=== PATIENT | male | born 1950 | race African-American/Black ===

== ENCOUNTER 2020-10-18 13:27 | Emergency (ER) | payer OTHER ==
[2020-10-18 14:05] LABS: Actual Bicarbonate (HCO3v) 25 mEq/L (22-28); Analyzer IN Cardio ER; Base Excess 0.3 mEq/L (-2.0 to +3.0); Calcium, Ionized (venous) 1.07 mmol/L (1.16-1.32); Chloride (VBG) 102 mmol/L (98-106); Hemoglobin (Hb) 14.7 g/dL (12.6-17.4); Potassium (VBG) 3.92 mmol/L (3.70-5.30); Sodium 137.4 mmol/L (133-146); pH (venous) 7.42 (7.32-7.43)
[2020-10-18 14:18] LABS: #Lymphocytes 0.6 thou/uL (1.20-3.40); #Monocytes 0.5 thou/uL (0.11-0.59); #Neutrophils 4.4 thou/uL (1.40-6.50); %Basophils 0.1 % (0.0-1.0); %Eosinophils 0.1 % (0.0-10.0); %Lymphocytes 11.3 % (21.0-51.0); %Monocytes 8.1 % (0.0-10.0); %Neutrophils 80.4 % (42.0-75.0); Hemoglobin 13.7 g/dL (14.0-18.0); Mean Corpuscular HGB CONC 34.9 g/dL (32.0-36.0); Mean Corpuscular Hemoglobin 34.5 pg (27.0-31.0); Mean Corpuscular Volume 98.8 fL (78.0-98.0); Mean Platelet Volume 7.3 fL (7.4-10.4); Platelet Count 233 thou/uL (130-400); RBC Distribution Width 12.4 % (11.5-14.5); Red Blood Cell (RBC) Count 3.97 mill/uL (4.70-6.10); White Blood Cell (WBC) Count 5.5 thou/uL (4.8-10.8)
[2020-10-18 14:42] LABS: ALT (SGPT) 21 U/L (8-55); AST (SGOT) 45 U/L (5-34); Albumin 3.5 g/dL (3.4-4.8); Alkaline Phosphatase 65 U/L (40-110); Anion Gap 15 mmol/L (10-20); BUN (Urea Nitrogen) 28 mg/dL (8.4-25.7); Bilirubin, Total 0.4 mg/dL (0.2-1.2); Calc. Creatinine Clearance 0 mL/min (70-130); Calcium 9.1 mg/dL (7.8-10.44); Carbon Dioxide 25 mmol/L (23-31); Chloride 101 mmol/L (98-107); Globulin 5.2 g/dL (2.4-3.5); Glucose 138 mg/dL (83-110); Potassium 3.9 mmol/L (3.5-5.1); Protein, Total 8.7 g/dL (5.8-8.1); Sodium 137 mmol/L (136-145)
[2020-10-18] MEDS ORDERED: Acetaminophen 325 MG TAB ONE (14:59)
[2020-10-18] MEDS ORDERED: cefTRIAXone\\ROCEPHIN 2 GM VIAL ONE (14:59)
[2020-10-18] MEDS ORDERED: Azithromycin 500 MG VIAL ONE (14:59)
[2020-10-18] MEDS ORDERED: Aspirin Chewable 81 MG TAB ONE (14:59)
[2020-10-18 16:07] LABS: SARS-CoV-2 NAA Rapid Test DETECTED (NotDetected)
[2020-10-18 17:21] LABS: Lactic Acid 1.5 mmol/L (0.5-2.2)
[2020-10-18] MEDS ORDERED: Dexamethasone 10 MG/ML VIAL ONE (20:27)
== END 2020-10-18 22:00 | disposition short-term general hospital (02) ==
LOC: ERS 13:27 → EDBD 13:27 → ERS 22:00
DX: A41.89 Other specified sepsis (principal); U07.1 COVID-19; J12.82 Pneumonia due to coronavirus disease 2019; R09.02 Hypoxemia; R00.0 Tachycardia, unspecified; I10 Essential (primary) hypertension; F17.210 Nicotine dependence, cigarettes, uncomplicated
CPT/HCPCS: 0240U; 36415; 71045; 80053; 82805; 83605; 84484; 85025; 93005; 96365; 96367; 96375; J0456; J0696; J1100

== ENCOUNTER 2021-10-18 22:05 | Inpatient (IN) | payer OTHER ==
[2021-10-18 22:44] LABS: Mean Corpuscular Hemoglobin 32.6 pg (27.0-31.0); Mean Corpuscular Volume 98.9 fL (78.0-98.0); Mean Platelet Volume 7.1 fL (7.4-10.4); Platelet Count 215 thou/uL (130-400); RBC Distribution Width 13.3 % (11.5-14.5); White Blood Cell (WBC) Count 4.7 thou/uL (4.8-10.8)
[2021-10-18 23:00] LABS: Band 1 % (5-11); Hypochromia SLIGHT = 6-15 cells (100X) (0-5/hpf); Lymphocytes 51 % (21-51); MDiff Complete? YES; Monocytes 4 % (0-10); Neutrophil 44 % (42-75); Platelet Morphology Comment Appears Adequate
[2021-10-18 23:06] LABS: ALT (SGPT) 15 U/L (8-55); AST (SGOT) 26 U/L (5-34); Albumin 3.6 g/dL (3.4-4.8); Alkaline Phosphatase 82 U/L (40-110); Anion Gap 16 mmol/L (10-20); BUN (Urea Nitrogen) 10 mg/dL (8.4-25.7); Bilirubin, Total 0.5 mg/dL (0.2-1.2); Calc. Creatinine Clearance 0 mL/min (70-130); Calcium 8.6 mg/dL (7.8-10.44); Carbon Dioxide 19 mmol/L (23-31); Chloride 104 mmol/L (98-107); Estimated GFR 87; Globulin 4.2 g/dL (2.4-3.5); Glucose 88 mg/dL (83-110); Potassium 3.6 mmol/L (3.5-5.1); Protein, Total 7.8 g/dL (5.8-8.1); Sodium 135 mmol/L (136-145)
[2021-10-18 23:08] LABS: Acetaminophen Less than 10.0 mcg/mL (10.0-30.0); Alcohol 207 mg/dL (Less than 10); CK (CPK) 285 U/L (30-200); Salicylate Less than 8.0 mg/dL (15.0-30.0)
[2021-10-18 23:35] LABS: Bacteria/HPF None Seen HPF (None Seen); Bilirubin Negative (Negative); Blood, Urine Trace (Negative); Clarity Clear (Clear); Glucose, Urine (Dipstick) Normal (Negative); Ketone, Urine Negative (Negative); Leukocyte 75 Leu/uL (Negative); Nitrite Negative (Negative); Protein, Urine (Dipstick) Negative (Neg-Trace); RBC/HPF 0-3 HPF (0-3); Specific Gravity, Urine 1.007 (1.002-1.036); Squamous Epithelial 0-3 HPF (0-3); Urobilinogen Normal mg/dL (Less than 2)
[2021-10-18 23:43] LABS: Amphetamine Not Detected (NotDetected); Barbiturates Screen Not Detected (NotDetected); Benzodiazepine Screen Not Detected (NotDetected); Cocaine Metabolite Screen Not Detected (NotDetected); Methadone Not Detected (NotDetected); Methamphetamine Not Detected (NotDetected); Opiate Screen Not Detected (NotDetected); Oxycodone Screen Not Detected (NotDetected); Phencyclidine (PCP) Not Detected (NotDetected); THC/Cannabinoid Screen Not Detected (NotDetected); Tricyclic Screen Not Detected (NotDetected)
[2021-10-19] MEDS ORDERED: Cephalexin 250 MG CAP ONE (00:44)
[2021-10-19 01:29] LABS: Lactic Acid 4.2 mmol/L (0.5-2.2)
[2021-10-19] MEDS ORDERED: cefTRIAXone\\ROCEPHIN 1 GM VIAL ONE (02:17)
[2021-10-19] MEDS ORDERED: Lorazepam (BATCHED) 2 MG/ML SYR ONE (07:24)
[2021-10-19] MEDS ORDERED: Lorazepam 1 MG TAB ONE (07:33)
[2021-10-19 09:36] LABS: Lactic Acid 5.3 mmol/L (0.5-2.2)
[2021-10-19] MEDS ORDERED: Ondansetron PF 4 MG/2 ML Vial IVP PRN (09:51)
[2021-10-19] MEDS ORDERED: Acetaminophen 325 MG TAB PO PRN (09:51)
[2021-10-19 11:13] VITALS: BMI 19.2
[2021-10-19] MEDS: Multivitamins, Adult 10 ML, Folic Acid 1 MG, Thiamine HCl 100 MG in Dextrose 5 %-0.45 %... IV SCH (13:31)
[2021-10-19 14:19] LABS: SARS-CoV-2 NAA Rapid Test Not Detected (NotDetected)
[2021-10-19] MEDS: Nicotine 14 MG PATCH TD SCH (17:30)
[2021-10-19] MEDS: Mometasone/Formoterol 200/5 60 PUFF INH SCH (18:43)
[2021-10-19] MEDS ORDERED: Morphine 2 MG/ML VIAL SLOW IVP PRN (19:52)
[2021-10-19] MEDS: Sodium Chloride 0.9% 1,000 ML IV SCH (20:31)
[2021-10-20 06:44] LABS: Calcium 8.5 mg/dL (7.8-10.44); Chloride 99 mmol/L (98-107); Potassium 5.4 mmol/L (3.5-5.1); Sodium 129 mmol/L (136-145)
[2021-10-20 06:45] LABS: Glucose 89 mg/dL (83-110)
[2021-10-20 06:46] LABS: Carbon Dioxide 13 mmol/L (23-31)
[2021-10-20 06:48] LABS: Calc. Creatinine Clearance 65 mL/min (70-130); Estimated GFR 92
[2021-10-20 06:49] LABS: BUN (Urea Nitrogen) 10 mg/dL (8.4-25.7)
[2021-10-20 07:43] LABS: #Lymphocytes 1.1 thou/uL (1.20-3.40); #Monocytes 0.7 thou/uL (0.11-0.59); #Neutrophils 8.2 thou/uL (1.40-6.50); %Basophils 0.5 % (0.0-1.0); %Eosinophils 0.2 % (0.0-10.0); %Neutrophils 81.3 % (42.0-75.0); Hemoglobin 16.2 g/dL (14.0-18.0); Mean Corpuscular Hemoglobin 32.3 pg (27.0-31.0); Mean Platelet Volume 7.3 fL (7.4-10.4); Platelet Count 179 thou/uL (130-400); RBC Distribution Width 13.4 % (11.5-14.5); White Blood Cell (WBC) Count 10.1 thou/uL (4.8-10.8)
[2021-10-20] MEDS: Mometasone/Formoterol 200/5 60 PUFF INH SCH ×2 (07:53→19:21)
[2021-10-20] MEDS ORDERED: Enoxaparin Sodium 40 MG/0.4 ML SYRINGE SC SCH (09:00)
[2021-10-20 10:19] LABS: Potassium 3.3 mmol/L (3.5-5.1)
[2021-10-20] MEDS: CEFAZOLIN 2 GM in Sodium Chloride 0.9% 100 ML IVPB SCH ×3 (10:21→18:28)
[2021-10-20] MEDS: Metoprolol Tartrate 25 MG TAB PO SCH ×2 (10:21→20:17)
[2021-10-20] MEDS: Sodium Chloride 0.9% 1,000 ML IV SCH ×2 (10:22→23:51)
[2021-10-20] MEDS ORDERED: Phenylephrine 10 MG/ML VIAL ONE (11:00)
[2021-10-20] MEDS ORDERED: Dexamethasone 20 MG/5 ML VIAL ONE (11:00)
[2021-10-20] MEDS ORDERED: Neostigmine Methylsulfate 3 MG/3 ML SYRINGE ONE (11:00)
[2021-10-20] MEDS ORDERED: Lidocaine 1% MPF 2 ML VIAL ONE (11:00)
[2021-10-20] MEDS ORDERED: PROPOFOL 200 MG/20 ML VIAL ONE (11:00)
[2021-10-20] MEDS ORDERED: Rocuronium Bromide 10 MG/ML (10ML VIAL) ONE (11:00)
[2021-10-20] MEDS ORDERED: Glycopyrrolate 0.2 MG/ML 5 ML SYRINGE ONE (11:00)
[2021-10-20] MEDS ORDERED: Ondansetron PF 4 MG/2 ML Vial ONE (11:00)
[2021-10-20] MEDS ORDERED: EPINEPHrine 1 MG/10 ML Abboject SYRINGE ONE (11:00)
[2021-10-20] MEDS: Nicotine 14 MG PATCH TD SCH (12:32)
[2021-10-20] MEDS ORDERED: fentaNYL Citrate/PF 100 MCG/2 ML SYRINGE ONE (14:16)
[2021-10-20] MEDS ORDERED: Ketamine 50 MG/ML (10ML VIAL) ONE (14:16)
[2021-10-20] MEDS ORDERED: Midazolam HCl 2 mg/2 ml Vial ONE (14:41)
[2021-10-20] MEDS: Multivitamins, Adult 10 ML, Folic Acid 1 MG, Thiamine HCl 100 MG in Dextrose 5 %-0.45 %... IV SCH (14:53)
[2021-10-20] MEDS ORDERED: hydrALAZINE 20 MG/ML VIAL ONE (16:39)
[2021-10-20] MEDS ORDERED: Promethazine HCl 25 MG/ML VIAL IVPB PRN (16:43)
[2021-10-20] MEDS ORDERED: Ondansetron HCl/PF 4 MG/2 ML Vial IVP PRN (16:43)
[2021-10-20] MEDS ORDERED: Morphine Sulfate 2 MG/ML SYRINGE SLOW IVP PRN (16:43)
[2021-10-20] MEDS ORDERED: Promethazine HCl 25 MG/ML VIAL IM PRN (16:43)
[2021-10-20] MEDS ORDERED: hydrALAZINE 20 MG/ML VIAL SLOW IVP PRN (16:44)
[2021-10-20] MEDS ORDERED: Fentanyl 100 MCG/2 ML VIAL ONE (16:52)
[2021-10-21] MEDS: CEFAZOLIN 2 GM in Sodium Chloride 0.9% 100 ML IVPB SCH ×4 (00:01→17:41)
[2021-10-21] MEDS: HYDROcodone/Acetaminophen 5/325 mg Tablet PO PRN ×2 (00:38→20:49)
[2021-10-21] MEDS: Mometasone/Formoterol 200/5 60 PUFF INH SCH ×2 (06:55→18:22)
[2021-10-21 08:40] LABS: #Lymphocytes 0.9 thou/uL (1.20-3.40); #Monocytes 0.8 thou/uL (0.11-0.59); #Neutrophils 7.2 thou/uL (1.40-6.50); %Basophils 0.3 % (0.0-1.0); %Eosinophils 0.1 % (0.0-10.0); %Lymphocytes 10.4 % (21.0-51.0); %Neutrophils 80.1 % (42.0-75.0); Hemoglobin 14.3 g/dL (14.0-18.0); Mean Corpuscular HGB CONC 32.4 g/dL (32.0-36.0); Mean Corpuscular Hemoglobin 31.5 pg (27.0-31.0); Mean Corpuscular Volume 97.3 fL (78.0-98.0); Mean Platelet Volume 8.3 fL (7.4-10.4); Platelet Count 173 thou/uL (130-400); RBC Distribution Width 13.6 % (11.5-14.5); Red Blood Cell (RBC) Count 4.53 mill/uL (4.70-6.10)
[2021-10-21] MEDS: Metoprolol Tartrate 25 MG TAB PO SCH ×2 (09:00→20:49)
[2021-10-21 09:04] LABS: Anion Gap 17 mmol/L (10-20); BUN (Urea Nitrogen) 14 mg/dL (8.4-25.7); Calc. Creatinine Clearance 62 mL/min (70-130); Calcium 8.6 mg/dL (7.8-10.44); Carbon Dioxide 21 mmol/L (23-31); Chloride 101 mmol/L (98-107); Estimated GFR 91; Glucose 92 mg/dL (83-110); Sodium 135 mmol/L (136-145)
[2021-10-21] MEDS ORDERED: Tamsulosin HCl 0.4 MG CAP PO SCH (11:45)
[2021-10-21] MEDS: Multivitamins, Adult 10 ML, Folic Acid 1 MG, Thiamine HCl 100 MG in Dextrose 5 %-0.45 %... IV SCH (13:15)
[2021-10-21] MEDS: Nicotine 14 MG PATCH TD SCH (13:15)
[2021-10-21] MEDS: Sodium Chloride 0.9% 1,000 ML IV SCH (15:59)
[2021-10-22] MEDS: Sodium Chloride 0.9% 1,000 ML IV SCH ×2 (01:19→18:25)
[2021-10-22] MEDS: CEFAZOLIN 2 GM in Sodium Chloride 0.9% 100 ML IVPB SCH ×3 (01:19→16:13)
[2021-10-22 01:47] LABS: Lactic Acid 1.2 mmol/L (0.5-2.2)
[2021-10-22 05:27] LABS: #Monocytes 0.8 thou/uL (0.11-0.59); #Neutrophils 5.4 thou/uL (1.40-6.50); %Basophils 0.1 % (0.0-1.0); %Eosinophils 0.1 % (0.0-10.0); %Lymphocytes 13.8 % (21.0-51.0); %Monocytes 11.4 % (0.0-10.0); %Neutrophils 74.6 % (42.0-75.0); Hemoglobin 11.5 g/dL (14.0-18.0); Mean Corpuscular HGB CONC 32.7 g/dL (32.0-36.0); Mean Corpuscular Hemoglobin 32.6 pg (27.0-31.0); Mean Corpuscular Volume 99.5 fL (78.0-98.0); Platelet Count 148 thou/uL (130-400); RBC Distribution Width 13.3 % (11.5-14.5); Red Blood Cell (RBC) Count 3.54 mill/uL (4.70-6.10); White Blood Cell (WBC) Count 7.3 thou/uL (4.8-10.8)
[2021-10-22 05:48] LABS: Anion Gap 9 mmol/L (10-20); BUN (Urea Nitrogen) 13 mg/dL (8.4-25.7); Calc. Creatinine Clearance 73 mL/min (70-130); Calcium 7.6 mg/dL (7.8-10.44); Carbon Dioxide 25 mmol/L (23-31); Chloride 105 mmol/L (98-107); Estimated GFR 95; Glucose 104 mg/dL (83-110); Sodium 136 mmol/L (136-145)
[2021-10-22] MEDS: Mometasone/Formoterol 200/5 60 PUFF INH SCH ×2 (07:42→19:04)
[2021-10-22] MEDS ORDERED: Potassium Chloride 20 MEQ TAB PO SCH (08:30)
[2021-10-22] MEDS ORDERED: Tamsulosin HCl 0.4 MG CAP PO SCH (09:00)
[2021-10-22] MEDS: Metoprolol Tartrate 25 MG TAB PO SCH ×2 (10:31→20:30)
[2021-10-22] MEDS: Multivitamins, Adult 10 ML, Folic Acid 1 MG, Thiamine HCl 100 MG in Dextrose 5 %-0.45 %... IV SCH (13:22)
[2021-10-22] MEDS ORDERED: Acetaminophen 325 MG TAB PO PRN (13:29)
[2021-10-22] MEDS ORDERED: Ondansetron PF 4 MG/2 ML Vial IVP PRN (13:30)
[2021-10-22] MEDS ORDERED: Morphine 2 MG/ML VIAL SLOW IVP PRN (13:31)
[2021-10-22] MEDS ORDERED: HYDROcodone/Acetaminophen 5/325 mg Tablet PO PRN (13:31)
[2021-10-22] MEDS ORDERED: Polyethylene Glycol 3350 17 GM Packet PO PRN (15:28)
[2021-10-22] MEDS ORDERED: Lactated Ringer's 1,000 ML IV SCH (15:30)
[2021-10-22] MEDS: Nicotine 14 MG PATCH TD SCH ×2 (16:13→18:26)
[2021-10-22] MEDS ORDERED: Lorazepam 1 MG TAB PO PRN (19:47)
[2021-10-22] MEDS ORDERED: Lorazepam 2 MG/ML VIAL IM PRN (19:47)
[2021-10-22] MEDS ORDERED: Ondansetron ODT 4 MG TAB PO PRN (19:47)
[2021-10-22] MEDS ORDERED: Labetalol HCl 100 MG/20 ML VIAL SLOW IVP PRN (19:47)
[2021-10-22] MEDS ORDERED: Electrolyte Replacement Protocol 1 EACH FS SCH (20:00)
[2021-10-22] MEDS: Lorazepam 1 MG TAB PO SCH (20:30)
[2021-10-22] MEDS: Thiamine HCl 200 MG/2 ML VIAL SLOW IVP SCH (20:31)
[2021-10-22] MEDS ORDERED: Lorazepam (BATCHED) 2 MG/ML SYR IM PRN (21:46)
[2021-10-23] MEDS: Lorazepam 1 MG TAB PO SCH ×5 (01:48→21:03)
[2021-10-23] MEDS: CEFAZOLIN 2 GM in Sodium Chloride 0.9% 100 ML IVPB SCH ×3 (01:54→17:56)
[2021-10-23] MEDS: Mometasone/Formoterol 200/5 60 PUFF INH SCH ×2 (07:06→19:06)
[2021-10-23] MEDS ORDERED: Thiamine 100 MG TAB PO SCH (09:00)
[2021-10-23] MEDS: Polyethylene Glycol 3350 17 GM Packet PO SCH (09:58)
[2021-10-23] MEDS: Folic Acid 1 MG TAB PO SCH (09:59)
[2021-10-23] MEDS: Metoprolol Tartrate 25 MG TAB PO SCH ×2 (09:59→21:03)
[2021-10-23] MEDS: Multivit, Therapeutic 1 TAB PO SCH (09:59)
[2021-10-23] MEDS: Tamsulosin HCl 0.4 MG CAP PO SCH (09:59)
[2021-10-23] MEDS: Sodium Chloride 0.9% 1,000 ML IV SCH ×2 (09:59→19:39)
[2021-10-23] MEDS ORDERED: Multivitamins, Adult 10 ML, Folic Acid 1 MG, Thiamine HCl 100 MG in Dextrose 5 %-0.45 %... IV SCH (12:00)
[2021-10-23] MEDS: Nicotine 14 MG PATCH TD SCH (14:47)
[2021-10-23] MEDS ORDERED: Lorazepam 1 MG TAB PO PRN (19:47)
[2021-10-23] MEDS: Thiamine HCl 200 MG/2 ML VIAL SLOW IVP SCH (21:03)
[2021-10-24] MEDS: Sodium Chloride 0.9% 1,000 ML IV SCH ×2 (01:45→08:02)
[2021-10-24] MEDS: CEFAZOLIN 2 GM in Sodium Chloride 0.9% 100 ML IVPB SCH ×3 (01:45→17:23)
[2021-10-24] MEDS: Lorazepam 1 MG TAB PO SCH ×4 (01:46→13:38)
[2021-10-24 06:07] LABS: #Eosinphils 0.1 thou/uL (0.0-0.7); #Lymphocytes 0.9 thou/uL (1.20-3.40); #Monocytes 0.7 thou/uL (0.11-0.59); #Neutrophils 5.2 thou/uL (1.40-6.50); %Basophils 0.5 % (0.0-1.0); %Eosinophils 1.3 % (0.0-10.0); %Lymphocytes 13.3 % (21.0-51.0); %Monocytes 10.2 % (0.0-10.0); %Neutrophils 74.7 % (42.0-75.0); Hemoglobin 10.9 g/dL (14.0-18.0); Mean Corpuscular HGB CONC 34.3 g/dL (32.0-36.0); Mean Corpuscular Hemoglobin 33.5 pg (27.0-31.0); Mean Corpuscular Volume 97.9 fL (78.0-98.0); Mean Platelet Volume 7.6 fL (7.4-10.4); Platelet Count 184 thou/uL (130-400); RBC Distribution Width 13.5 % (11.5-14.5); Red Blood Cell (RBC) Count 3.24 mill/uL (4.70-6.10); White Blood Cell (WBC) Count 6.9 thou/uL (4.8-10.8)
[2021-10-24 06:31] LABS: Anion Gap 12 mmol/L (10-20); BUN (Urea Nitrogen) 6 mg/dL (8.4-25.7); Calc. Creatinine Clearance 80 mL/min (70-130); Calcium 7.7 mg/dL (7.8-10.44); Carbon Dioxide 23 mmol/L (23-31); Chloride 103 mmol/L (98-107); Estimated GFR 98; Glucose 103 mg/dL (83-110); Sodium 135 mmol/L (136-145)
[2021-10-24] MEDS: Mometasone/Formoterol 200/5 60 PUFF INH SCH ×2 (07:04→19:45)
[2021-10-24] MEDS ORDERED: Potassium Chloride 20 MEQ TAB PO SCH (08:00)
[2021-10-24] MEDS: Polyethylene Glycol 3350 17 GM Packet PO SCH (08:00)
[2021-10-24] MEDS: Folic Acid 1 MG TAB PO SCH (08:04)
[2021-10-24] MEDS: Tamsulosin HCl 0.4 MG CAP PO SCH (08:05)
[2021-10-24] MEDS: Metoprolol Tartrate 25 MG TAB PO SCH ×2 (08:05→21:23)
[2021-10-24] MEDS: Multivit, Therapeutic 1 TAB PO SCH (08:05)
[2021-10-24] MEDS ORDERED: Amlodipine 10 MG TAB PO SCH (09:45)
[2021-10-24] MEDS: Nicotine 14 MG PATCH TD SCH (13:18)
[2021-10-24] MEDS ORDERED: Lorazepam 1 MG TAB PO PRN (19:47)
[2021-10-24] MEDS: Lorazepam 0.5 MG TAB PO SCH (21:23)
[2021-10-24] MEDS: Thiamine HCl 200 MG/2 ML VIAL SLOW IVP SCH (21:24)
[2021-10-25] MEDS: CEFAZOLIN 2 GM in Sodium Chloride 0.9% 100 ML IVPB SCH ×3 (02:14→17:48)
[2021-10-25] MEDS: Lorazepam 0.5 MG TAB PO SCH ×3 (02:14→14:27)
[2021-10-25] MEDS: Sodium Chloride 0.9% 1,000 ML IV SCH ×2 (02:15→13:54)
[2021-10-25] MEDS: Mometasone/Formoterol 200/5 60 PUFF INH SCH ×2 (06:28→19:14)
[2021-10-25 06:37] LABS: #Eosinphils 0.1 thou/uL (0.0-0.7); #Lymphocytes 1.1 thou/uL (1.20-3.40); #Monocytes 0.8 thou/uL (0.11-0.59); #Neutrophils 5.8 thou/uL (1.40-6.50); %Basophils 0.3 % (0.0-1.0); %Eosinophils 1.4 % (0.0-10.0); %Monocytes 10.6 % (0.0-10.0); %Neutrophils 73.7 % (42.0-75.0); Hemoglobin 10.6 g/dL (14.0-18.0); Mean Corpuscular HGB CONC 32.1 g/dL (32.0-36.0); Mean Corpuscular Hemoglobin 32.3 pg (27.0-31.0); Platelet Count 204 thou/uL (130-400); RBC Distribution Width 13.7 % (11.5-14.5); Red Blood Cell (RBC) Count 3.29 mill/uL (4.70-6.10); White Blood Cell (WBC) Count 7.8 thou/uL (4.8-10.8)
[2021-10-25 06:53] LABS: Anion Gap 14 mmol/L (10-20); BUN (Urea Nitrogen) 9 mg/dL (8.4-25.7); Calc. Creatinine Clearance 72 mL/min (70-130); Calcium 8.1 mg/dL (7.8-10.44); Carbon Dioxide 22 mmol/L (23-31); Chloride 104 mmol/L (98-107); Estimated GFR 95; Glucose 97 mg/dL (83-110); Potassium 3.8 mmol/L (3.5-5.1); Sodium 136 mmol/L (136-145)
[2021-10-25] MEDS: Polyethylene Glycol 3350 17 GM Packet PO SCH (08:59)
[2021-10-25] MEDS: Amlodipine 10 MG TAB PO SCH (09:00)
[2021-10-25] MEDS: Multivit, Therapeutic 1 TAB PO SCH (09:00)
[2021-10-25] MEDS: Metoprolol Tartrate 25 MG TAB PO SCH ×2 (09:00→20:55)
[2021-10-25] MEDS: Tamsulosin HCl 0.4 MG CAP PO SCH (09:00)
[2021-10-25] MEDS: Folic Acid 1 MG TAB PO SCH (09:00)
[2021-10-25] MEDS: Nicotine 14 MG PATCH TD SCH (14:27)
[2021-10-25] MEDS ORDERED: Lorazepam 0.5 MG TAB PO PRN (19:47)
[2021-10-25] MEDS ORDERED: Thiamine 100 MG TAB PO SCH (21:00)
[2021-10-26 06:10] LABS: #Eosinphils 0.2 thou/uL (0.0-0.7); #Lymphocytes 1.3 thou/uL (1.20-3.40); #Monocytes 0.9 thou/uL (0.11-0.59); #Neutrophils 5.4 thou/uL (1.40-6.50); %Basophils 0.2 % (0.0-1.0); %Eosinophils 2.4 % (0.0-10.0); %Lymphocytes 16.3 % (21.0-51.0); %Monocytes 11.7 % (0.0-10.0); %Neutrophils 69.4 % (42.0-75.0); Hemoglobin 10.5 g/dL (14.0-18.0); Mean Corpuscular HGB CONC 32.8 g/dL (32.0-36.0); Mean Corpuscular Hemoglobin 32.5 pg (27.0-31.0); Mean Corpuscular Volume 99.2 fL (78.0-98.0); Mean Platelet Volume 7.4 fL (7.4-10.4); Platelet Count 258 thou/uL (130-400); RBC Distribution Width 13.7 % (11.5-14.5); Red Blood Cell (RBC) Count 3.22 mill/uL (4.70-6.10); White Blood Cell (WBC) Count 7.8 thou/uL (4.8-10.8)
[2021-10-26 06:31] LABS: Anion Gap 12 mmol/L (10-20); BUN (Urea Nitrogen) 10 mg/dL (8.4-25.7); Calc. Creatinine Clearance 71 mL/min (70-130); Calcium 8.3 mg/dL (7.8-10.44); Carbon Dioxide 25 mmol/L (23-31); Chloride 103 mmol/L (98-107); Estimated GFR 95; Glucose 96 mg/dL (83-110); Potassium 3.6 mmol/L (3.5-5.1); Sodium 136 mmol/L (136-145)
[2021-10-26] MEDS: Mometasone/Formoterol 200/5 60 PUFF INH SCH (07:14)
[2021-10-26] MEDS: Tamsulosin HCl 0.4 MG CAP PO SCH (08:48)
[2021-10-26] MEDS: Folic Acid 1 MG TAB PO SCH (08:48)
[2021-10-26] MEDS: Amlodipine 10 MG TAB PO SCH (08:48)
[2021-10-26] MEDS: Multivit, Therapeutic 1 TAB PO SCH (08:48)
[2021-10-26] MEDS: Metoprolol Tartrate 25 MG TAB PO SCH (08:49)
[2021-10-26] MEDS: Polyethylene Glycol 3350 17 GM Packet PO SCH (08:49)
[2021-10-26 11:47] VITALS: BP 131/82; TEMP 98
[2021-10-26] MEDS: Nicotine 14 MG PATCH TD SCH (14:41)
== END 2021-10-26 15:20 | DRG 522 ==
LOC: ERS 22:05 → ERHOLD 10-19 07:35 → MSONC 10-19 15:32 → OBSVTOIN 10-19 19:50 → SURG A 10-20 18:03 → UNDODISIN 10-22 10:40
PROVIDERS: ADMIT Internal Medicine; ATTEND Hospitalist
PROC: 0SRR0JZ Replacement of Right Hip Joint, Femoral Surface with Synthetic Substitute, Open Approach (ICD-10-PCS; principal; 2021-10-20)
PROC: 3E033XZ Introduction of Vasopressor into Peripheral Vein, Percutaneous Approach (ICD-10-PCS; 2021-10-20)
PROC: 0T9B70Z Drainage of Bladder with Drainage Device, Via Natural or Artificial Opening (ICD-10-PCS; 2021-10-21)
DX: S72.011A Unspecified intracapsular fracture of right femur, initial encounter for closed fracture (principal); F10.121 Alcohol abuse with intoxication delirium; N39.0 Urinary tract infection, site not specified; I10 Essential (primary) hypertension; F17.210 Nicotine dependence, cigarettes, uncomplicated; W19.XXXA Unspecified fall, initial encounter; R33.9 Retention of urine, unspecified; Z20.822 Contact with and (suspected) exposure to COVID-19; Z98.890 Other specified postprocedural states; Z78.1 Physical restraint status; Y92.9 Unspecified place or not applicable
CPT/HCPCS: 36415; 70450; 71045; 72125; 72170; 72192; 80048; 80053; 80306; 80307; 81003; 81015; 82550; 83605; 84484; 85025; 87040; 87086; 90471; 90732; 93005; 93306; 94640; 94664; 96361; 96365; C1776; G0009; G0378; J0171; J0360; J0690; J0696; J1100; J2060; J2250; J2270; J2370; J2405; J2704; J3010; J3411; J3490; J7042; J7050; J7120; J7620; U0002; U0003; U0005